=== PATIENT | female | born 1975 | race Caucasian/White ===

== ENCOUNTER 2017-10-24 12:37 | Day surgery (SDC) | payer OTHER ==
[~2017-10-24] VITALS: Ht 147.3 cm; Wt 77.6 kg
[~2017-10-24 12:37] MED LIST: ACET-2119 PO; IBUP-24 PO
[2017-10-24 12:55] VITALS: BP 99/64
[2017-10-24 12:57] VITALS: BP 99/64
[2017-10-24] MEDS ORDERED: diphenhydrAMINE 50 mg/ml inj IV ONE (13:10)
[2017-10-24] MEDS ORDERED: hydrocortisone sod succ/PF 100mg/2ml inj. IV ONE (13:10)
[2017-10-24] MEDS ORDERED: sodium ferric gluc complex inj 125 MG in normal saline 100ml IV soln 100 ML IV ONE (13:15)
[2017-10-24] MEDS ORDERED: methylPREDNISolone sod succ 125mg/2ml vial IV ONE (13:15)
[2017-10-24 13:45] VITALS: BP 99/64
[2017-10-24] MEDS ORDERED: SODIUM FERRIC GLUC COMPLEX IV ONE (13:45)
[2017-10-24] MEDS ORDERED: NORMAL SALINE IV ONE (13:45)
[2017-10-24 14:55] VITALS: BP 102/62
[2017-10-24 15:40] VITALS: BP 101/56
== END 2017-10-24 16:00 | disposition home or self-care (01) ==
LOC: SSTAY O 12:37
PROVIDERS: ATTEND Internal Medicine
DX: D50.9 Iron deficiency anemia, unspecified (principal)
CPT/HCPCS: 96365; 96366; J2916; J7030